=== PATIENT | female | born 1985 | race African-American/Black ===

== ENCOUNTER → 2016-10-18 | Outpatient (CLI) | payer BC | LOC: OD 09:10 | PROVIDERS: ATTEND Nurse Practitioner Primary Care | DX: Z31.83 Encounter for assisted reproductive fertility procedure cycle (principal) | CPT/HCPCS: 36415; 84702 ==

== ENCOUNTER → 2016-11-15 | Outpatient (CLI) | payer BC ==
[2016-11-26 15:39] LABS: CHROM GTGBAND RESOLUTION ACHVD 500 (.); CHROMOSOME CELLS ANALYZED 20 (.); CHROMOSOME CELLS COUNTED 20 (.); CHROMOSOME CELLS KARYOTYPED 2 (.)
[2016-11-27 10:52] LABS: CHROMOSOME BLD DIRECTOR REVIEW Comment: (.); CHROMOSOME CYTOGENETIC RESULT Comment: (.); CHROMOSOME INTERPRETATION Comment: (.); CHROMOSOME SPECIMEN TYPE Comment: (.)
== END ==
LOC: OD 12:31
PROVIDERS: ATTEND Obstetrics & Gynecology Reproductive Endocrinology
DX: N96 Recurrent pregnancy loss (principal)
CPT/HCPCS: 36415; 88230; 88262

== ENCOUNTER 2016-12-19 03:21 | Emergency (ER) | payer SELFPAY ==
[2016-12-19 03:46] VITALS: BP 121/72
[2016-12-19] MEDS ORDERED: KETOROLAC TROMETHAMINE 60 MG/2 ML SDV IM ONE (04:20)
--- NOTE | 2016-12-19 04:26 | ER Document Report ---
ED GI/ - General Chief Complaint: Foreign Body in Vagina Stated Complaint: FOREIGN OBJECT IN VAGINAL AREA Time Seen by Provider: 12/19/16 04:08 Mode of Arrival: Ambulatory Information source: Patient Notes: 31-year-old female presents to ED for a tampon in the vagina. She states she had sexual intercourse with a tampon in. End of the tampon was now stuck in the vagina. She states her and her tried to get it out, not able to. She states she could not see the string. TRAVEL OUTSIDE OF THE [place] IN LAST 30 DAYS: No - HPI Patient complains to provider of: Pelvic pain, Vaginal pain, Other - Tampon stuck in the vagina Onset: This evening Timing/Duration: Persistent Quality of pain: Cramping, Throbbing Severity at maximum: Severe Severity in ED: Severe Pain Level: 5 Location: Pelvis Vaginal bleeding (Compared to normal period): None Associated symptoms: Other - Pelvic pain due to the tampon being stuck in the vagina Exacerbated by: Denies Relieved by: Denies Similar symptoms previously: No Recently seen / treated by doctor: No - Related Data Allergies/Adverse Reactions: No Known Allergies Allergy (Verified 12/19/16 04:24) Home Medications: Current Home Medications No Home Medications 12/19/16 [History] Past Medical History - General Information source: Patient - Social History Smoking Status: Never Smoker Cigarette use (# per day): No Chew tobacco use (# tins/day): No Smoking Education Provided: No Frequency of alcohol use: Social Drug Abuse: None Occupation: [employer] Lives with: Family Family History: Hypertension, Thyroid Disfunction. denies: Arthritis, CAD, COPD , CVA, DM, Hyperlipidemia, Malignancy Patient has suicidal ideation: No Patient has homicidal ideation: No - Past Medical History Cardiac Medical History: Reports: None Pulmonary Medical History: Reports: None EENT Medical History: Reports: None Neurological Medical History: Reports: None Endocrine Medical History: Reports: None Renal/ Medical History: Reports: Hx Ovarian Cysts - PCOS, Other - Patient states she has had 2 miscarriages one stillborn and one live who has since Malignancy Medical History: Reports: None GI Medical History: Reports: None Musculoskeltal Medical History: Reports Hx Musculoskeletal Trauma - rt shoulder dislocation Skin Medical History: Reports None Psychiatric Medical History: Reports: None Traumatic Medical History: Reports: None Infectious Medical History: Reports: None Past Surgical History: Reports: Hx Dilation and Curettage - D&C 2 for miscarriages, Hx Orthopedic Surgery - right shoulder - Immunizations Immunizations up to date: Yes Hx Diphtheria, Pertussis, Tetanus Vaccination: Yes Review of Systems - Review of Systems Constitutional: No symptoms reported EENT: No symptoms reported Cardiovascular: No symptoms reported Respiratory: No symptoms reported Gastrointestinal: No symptoms reported Genitourinary: No symptoms reported Female Genitourinary: Other - Pelvic pain due to a tampon stuck in the vagina Musculoskeletal: No symptoms reported Skin: No symptoms reported Hematologic/Lymphatic: No symptoms reported Neurological/Psychological: No symptoms reported -: Yes All other systems reviewed and negative Physical Exam - Vital signs Vitals: Temp Pulse Resp BP Pulse Ox 98.1 F 70 20 121/72 98 12/19/16 03:29 12/19/16 03:29 12/19/16 03:29 12/19/16 03:12/19/16 03:29 Interpretation: Normal - General General appearance: Appears well, Alert - HEENT Head: Normocephalic, Atraumatic Eyes: Normal Pupils: PERRL - Respiratory Respiratory status: No respiratory distress Chest status: Nontender Breath sounds: Normal Chest palpation: Normal - Cardiovascular Rhythm: Regular Heart sounds: Normal auscultation Murmur: No - Abdominal Inspection: Normal Distension: No distension Bowel sounds: Normal Tenderness: Nontender Organomegaly: No organomegaly - Genitourinary External exam: Normal Speculum exam: Normal Vaginal bleeding: None Bimanuel exam: Normal Notes: Tampons duct and vagina to the right of the cervix with the string on the interior. Patient states she had sexual intercourse with a tampon in. She states she and her could not remove the tampon and the pain increased so she came to the hospital to get the tampon removed. - Back Back: Normal, Nontender - Extremities General upper extremity: Normal inspection, Nontender, Normal color, Normal ROM , Normal temperature General lower extremity: Normal inspection, Nontender, Normal color, Normal ROM , Normal temperature, Normal weight bearing. No: Val's sign - Neurological Neuro grossly intact: Yes Cognition: Normal Orientation: AAOx4 [place] Coma Scale Eye Opening: Spontaneous [place] Coma Scale Verbal: Oriented Ingrid Coma Scale Motor: Obeys Commands [place] Coma Scale Total: 15 Speech: Normal Motor strength normal: LUE, RUE, LLE, RLE Sensory: Normal - Psychological Associated symptoms: Normal affect, Normal mood - Skin Skin Temperature: Warm Skin Moisture: Dry Skin Color: Normal Course - Re-evaluation Re-evalutation: 12/19/16 04:26 Tampon removed the vagina forceps with no difficulty. Patient states she is still having some cramping will treat her with Toradol and discharge her home to follow-up with her primary doctor. - Vital Signs Vital signs: Temp Pulse Resp BP Pulse Ox 98.1 F 70 20 121/72 98 12/19/16 03:29 12/19/16 03:29 12/19/16 03:29 12/19/16 03:29 12/19/16 03:29 Discharge - Discharge Clinical Impression: Tampon stuck in the vagina Condition: Stable Disposition: HOME, SELF-CARE Instructions: Family Physicians / Practices Additional Instructions: You had a tampon stuck in your vagina. This was removed with forceps. You were then treated with Toradol. Toradol Injection You have been given an injection of ketorolac tromethamine (Toradol). This is an excellent, safe drug for pain control. It also has potent antiinflammatory action. You should have significant pain relief within about one hour. Toradol is not addicting and is non-sedating. It does not interfere with driving or work. Call or return if you develop itching, hives, shortness of breath, or rash. Follow up promptly with the ED or with your primary doctor if you develop any fevers chills or any other signs or symptoms of an infection. FOLLOW-UP CARE: If you have been referred to a physician for follow-up care, call the physician s office for an appointment as you were instructed or within the next two days. If you experience worsening or a significant change in your symptoms, notify the physician immediately or return to the Emergency Department at any time for re-evaluation. Forms: Return to Work
== END 2016-12-19 04:42 | disposition home or self-care (01) ==
LOC: ER 03:21
DX: T19.2XXA Foreign body in vulva and vagina, initial encounter (principal); R10.2 Pelvic and perineal pain; X58.XXXA Exposure to other specified factors, initial encounter; Y93.89 Activity, other specified
CPT/HCPCS: 99283; 96372; J1885

== ENCOUNTER → 2017-02-01 | Outpatient (CLI) | payer OTHER | LOC: OD 10:05 | PROVIDERS: ATTEND Nurse Practitioner Primary Care | DX: N97.9 Female infertility, unspecified (principal) | CPT/HCPCS: 36415; 82670 ==

== ENCOUNTER 2017-02-06 13:50 | Emergency (ER) | payer OTHER ==
--- NOTE | 2017-02-06 14:24 | ER Document Report ---
ED Foreign Body - General Chief Complaint: Foreign Body in Vagina Stated Complaint: VAGINAL PROBLEMS Time Seen by Provider: 02/06/17 14:03 Mode of Arrival: Ambulatory Information source: Patient TRAVEL OUTSIDE OF THE [place] IN LAST 30 DAYS: No - HPI Patient complains to provider of: Possible tampon in vagina Onset: Yesterday Associated symptoms: Vaginal bleeding. denies: Recent injury, Fever, Chills, Sweaty, Nausea, Vomiting blood, Lightheadedness, Fainting, Headache, Bruising, Blurred vision, Double vision, Rectal bleeding, Nose bleeding Exacerbated by: Denies Relieved by: Denies Notes: Patient arrives with complaints of concern for tampon in her vagina. Patient is currently on her menses and was wearing a tampon Tuesday evening. She states that she was intoxicated when she got home and had intercourse with her but does not remember taking her tampon out. She is concerned that there is still a tampon in and wanted to have this evaluated. She denies any pain, fever , nausea vomiting diarrhea, dysuria. She denies any vaginal discharge. She is currently on her menses and this is been normal. She denies any other complaints at this time. - Related Data Allergies/Adverse Reactions: Sulfa (Sulfonamide Antibiotics) Allergy (Verified 02/06/17 13:59) Past Medical History - Social History Smoking Status: Unknown if Ever Smoked Family History: Hypertension, Thyroid Disfunction. denies: Arthritis, CAD, COPD , CVA, DM, Hyperlipidemia, Malignancy Patient has suicidal ideation: No Patient has homicidal ideation: No Renal/ Medical History: Reports: Hx Ovarian Cysts - PCOS. Denies: Hx Peritoneal Dialysis Musculoskeltal Medical History: Reports Hx Musculoskeletal Trauma - rt shoulder dislocation Past Surgical History: Reports: Hx Dilation and Curettage - D&C 2 for miscarriages, Hx Gynecologic Surgery - D&Cx3, Hx Orthopedic Surgery - right shoulder - Immunizations Immunizations up to date: Yes Hx Diphtheria, Pertussis, Tetanus Vaccination: Yes Review of Systems - Review of Systems -: Yes All other systems reviewed and negative Physical Exam - Vital signs Vitals: Temp Pulse Resp BP Pulse Ox 98.5 F 114 H 16 124/85 93 02/06/17 13:56 02/06/17 13:56 02/06/17 13:56 02/06/17 13:56 02/06/17 13:56 - Notes Notes: GENERAL: alert, cooperative, nontoxic, no distress. HEAD: normocephalic, atraumatic EYES: conjunctiva pink without discharge, no external redness or swelling. EARS: no external swelling, no external redness NOSE: atraumatic, no external swelling MOUTH/THROAT: mucous membranes moist and pink, posterior pharynx without erythema, swelling, exudate. No trismus or drooling. NECK: soft, supple, full range of motion, no meningismus. CHEST: no distress, lungs clear and equal throughout. No wheezing, rales, rhonchi. CARDIAC: regular rate and rhythm, no murmur, normal capillary refill, normal pulses. No peripheral edema noted. ABDOMEN: Soft, nontender. BACK: full range of motion, no CVA tenderness. EXTREMITIES: full range of motion of all extremities. No redness, no swelling. NEURO: alert and oriented x 3, no focal deficits, full range of motion of all extremities. PYSCH: appropriate mood, affect. Patient is cooperative. SKIN: pink, warm, dry, no rash. 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 No external lesions. Speculum was inserted, cervix was visualized. There was blood within the vaginal vault consistent with current menses. There was no foreign body or tampon visualized on exam. Bimanual exam was unremarkable. No adnexal tenderness or masses. Course - Re-evaluation Re-evalutation: 02/06/17 14:30 Patient is nontoxic appearing with stable vitals. The patient arrives with concern that she still has a tampon in her vagina. States that she went out Tuesday evening with her and was intoxicated when they got home. They had intercourse and she does not remember removing her tampon. She is concerned that it still in there. She denies any complaints at all. Pelvic exam shows no tampon present. No signs of infection. Patient will be discharged home with instructions to follow-up for pain, fever, vomiting, any further concerns. The patient is noted to have elevated blood pressure during today's emergency department visit. The patient was informed of this finding. The patient was instructed that this may be related to pre-hypertension and requires further evaluation with a primary care provider. The patient has no hypertensive symptoms at this time. - Vital Signs Vital signs: Temp Pulse Resp BP Pulse Ox 98.5 F 114 H 16 124/85 93 02/06/17 13:56 02/06/17 13:56 02/06/17 13:56 02/06/17 13:56 02/06/17 13:56 Discharge - Discharge Clinical Impression: Worried well Condition: Stable Disposition: HOME, SELF-CARE Instructions: Vaginal Bleeding ([facility]) Additional Instructions: Follow-up as needed for pain, fever, discharge, nausea, vomiting, any further concerns. Your blood pressure was elevated during today's visit. Have this rechecked with your doctor. Forms: Elevated Blood Pressure
[2017-02-06 14:35] VITALS: BP 116/71
== END 2017-02-06 14:32 | disposition home or self-care (01) ==
LOC: ER 13:50
DX: Z71.1 Person with feared health complaint in whom no diagnosis is made (principal); Z88.2 Allergy status to sulfonamides
CPT/HCPCS: 99283

== ENCOUNTER 2017-09-13 11:39 | Emergency (ER) | payer OTHER ==
--- NOTE | 2017-09-13 11:56 | ER Document Report ---
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 Onset 331 of nausea and frequent diarrhea. She vomited once last night. She has had a headache for 2 days. She reports she has been drinking lots of fluids, but is concerned about being dehydrated due to the amount of diarrhea. I have greeted and performed a rapid initial assessment of this patient. A comprehensive ED assessment and evaluation of the patient, analysis of test results and completion of the medical decision making process will be conducted by additional ED providers. TRAVEL OUTSIDE OF THE [place] IN LAST 30 DAYS: No - Related Data Allergies/Adverse Reactions: No Known Allergies Allergy (Verified 09/13/17 11:41) Past Medical History Renal/ Medical History: Reports: Hx Ovarian Cysts - PCOS. Denies: Hx Peritoneal Dialysis Musculoskeltal Medical History: Reports Hx Musculoskeletal Trauma - rt shoulder dislocation Past Surgical History: Reports: Hx Dilation and Curettage - D&C 2 for miscarriages, Hx Gynecologic Surgery - D&Cx3, Hx Orthopedic Surgery - right shoulder - Immunizations Immunizations up to date: Yes Hx Diphtheria, Pertussis, Tetanus Vaccination: Yes Physical Exam - Vital signs Vitals: Temp Pulse Resp BP Pulse Ox 99.1 F 86 16 126/83 H 98 09/13/17 11:45 09/13/17 11:45 09/13/17 11:45 09/13/17 11:45 09/13/17 11:45 Course - Vital Signs Vital signs: Temp Pulse Resp BP Pulse Ox 99.1 F 86 16 126/83 H 98 09/13/17 11:45 09/13/17 11:45 09/13/17 11:45 09/13/17 11:45 09/13/17 11:45
[2017-09-13] MEDS ORDERED: NORMAL SALINE 1000 ML 1,000 ML IV ONE (12:18)
[2017-09-13] MEDS ORDERED: METOCLOPRAMIDE HCL INJ/PF 10 MG/2 ML SDV IV ONE (12:24)
[2017-09-13 12:28] LABS: ABSOLUTE EOSINOPHILS # (AUTO) 0.4 10^3/uL (0.0-0.6); ABSOLUTE LYMPHOCYTES (AUTO) 2.3 10^3/uL (0.5-4.7); ABSOLUTE MONOCYTES (AUTO) 0.4 10^3/uL (0.1-1.4); ABSOLUTE NEUT (AUTO) 2.3 10^3/uL (1.7-8.2); BASOPHILS % (AUTO) 0.5 % (0-2); EOSINOPHILS % (AUTO) 7.8 % (0-6); HEMATOCRIT 42.8 % (36.0-47.0); LYMPHOCYTES % (AUTO) 41.8 % (13-45); MEAN CORPUSCULAR HEMOGLOBIN 32.6 pg (27.0-33.4); MEAN CORPUSCULAR HGB CONC 35.1 g/dL (32.0-36.0); MEAN CORPUSCULAR VOLUME 93 fl (80-97); MONOCYTES % (AUTO) 8.1 % (3-13); PLATELET COUNT 290 10^3/uL (150-450); RED CELL DISTRIBUTION WIDTH 13.2 % (11.5-14.0); SEGMENTED NEUTROPHILS % (AUTO) 41.8 % (42-78); TOTAL CELLS COUNTED % (AUTO) 100 %; WHITE BLOOD COUNT 5.5 10^3/uL (4.0-10.5)
[2017-09-13 12:33] LABS: APPEARANCE,URINE SLIGHTLY-CLOUDY; BILIRUBIN,URINE NEGATIVE (NEGATIVE); COLOR,URINE DARK YELLOW; GLUCOSE, URINE NEGATIVE (NEGATIVE); KETONES,URINE 20 mg/dL (NEGATIVE); LEUKOCYTE ESTERASE,URINE NEGATIVE (NEGATIVE); NITRITE,URINE NEGATIVE (NEGATIVE); PROTEIN,URINE 30 mg/dL (NEGATIVE); URINE SPECIFIC GRAVITY 1.028; UROBILINOGEN,URINE NEGATIVE mg/dL (<2.0)
[2017-09-13 12:50] LABS: ALANINE AMINOTRANSFERASE 22 U/L (9-52); ALBUMIN 4.1 g/dL (3.5-5.0); ALKALINE PHOSPHATASE 53 U/L (38-126); ANION GAP 13 (5-19); ASPARTATE AMINO TRANSFERASE 21 U/L (14-36); BILIRUBIN,DIRECT 0.3 mg/dL (0.0-0.4); BILIRUBIN,TOTAL 0.4 mg/dL (0.2-1.3); BLOOD UREA NITROGEN 10 mg/dL (7-20); CALCIUM 9.3 mg/dL (8.4-10.2); CARBON DIOXIDE 18 mmol/L (22-30); CHLORIDE 109 mmol/L (98-107); GLUCOSE 95 mg/dL (75-110); POTASSIUM 4.4 mmol/L (3.6-5.0); SODIUM 139.8 mmol/L (137-145); TOTAL PROTEIN 7.4 g/dL (6.3-8.2)
--- NOTE | 2017-09-13 13:55 | ER Document Report ---
ED General - General Chief Complaint: Vomiting/Diarrhea Stated Complaint: NAUSEA AND VOMITING Time Seen by Provider: 09/13/17 11:50 TRAVEL OUTSIDE OF THE [place] IN LAST 30 DAYS: No - HPI Patient complains to provider of: Nausea vomiting diarrhea Notes: Patient coming in for nausea vomiting diarrhea ongoing for the last 48 hours. Patient states her significant other at bedside and had symptoms only lasted for 24 hours. Patient states recently had 2 embryos implanted intra-uterus that she is trying get . Patient is also unaware of her status at this time. Denies any fevers or chills. Patient resting comfortably no signs of toxemia upon my evaluation. - Related Data Allergies/Adverse Reactions: No Known Allergies Allergy (Verified 09/13/17 11:41) Past Medical History - Social History Smoking Status: Never Smoker Chew tobacco use (# tins/day): No Frequency of alcohol use: None Drug Abuse: None Family History: Hypertension, Thyroid Disfunction. denies: Arthritis, CAD, COPD , CVA, DM, Hyperlipidemia, Malignancy Patient has suicidal ideation: No Patient has homicidal ideation: No Renal/ Medical History: Reports: Hx Ovarian Cysts - PCOS. Denies: Hx Peritoneal Dialysis Musculoskeltal Medical History: Reports Hx Musculoskeletal Trauma - rt shoulder dislocation Past Surgical History: Reports: Hx Dilation and Curettage - D&C 2 for miscarriages, Hx Gynecologic Surgery - D&Cx3, Hx Orthopedic Surgery - right shoulder - Immunizations Immunizations up to date: Yes Hx Diphtheria, Pertussis, Tetanus Vaccination: Yes Review of Systems - Review of Systems Constitutional: No symptoms reported EENT: No symptoms reported Cardiovascular: No symptoms reported Respiratory: No symptoms reported Gastrointestinal: Diarrhea, Nausea, Vomiting Genitourinary: No symptoms reported Female Genitourinary: No symptoms reported Musculoskeletal: No symptoms reported Skin: No symptoms reported Hematologic/Lymphatic: No symptoms reported Neurological/Psychological: No symptoms reported Physical Exam - Vital signs Vitals: Temp Pulse Resp BP Pulse Ox 99.1 F 86 16 126/83 H 98 09/13/17 11:45 09/13/17 11:45 09/13/17 11:45 09/13/17 11:45 09/13/17 11:45 Interpretation: Normal - General General appearance: Appears well, Alert - HEENT Head: Normocephalic, Atraumatic Eyes: Normal Pupils: PERRL - Respiratory Respiratory status: No respiratory distress Chest status: Nontender Breath sounds: Normal Chest palpation: Normal - Cardiovascular Rhythm: Regular Heart sounds: Normal auscultation Murmur: No - Abdominal Inspection: Normal Distension: No distension Bowel sounds: Normal Tenderness: Nontender Organomegaly: No organomegaly - Back Back: Normal, Nontender - Extremities General upper extremity: Normal inspection, Nontender, Normal color, Normal ROM , Normal temperature General lower extremity: Normal inspection, Nontender, Normal color, Normal ROM , Normal temperature, Normal weight bearing. No: Val's sign - Neurological Neuro grossly intact: Yes Cognition: Normal Orientation: AAOx4 [place] Coma Scale Eye Opening: Spontaneous Ingrid Coma Scale Verbal: Oriented Ingrid Coma Scale Motor: Obeys Commands [place] Coma Scale Total: 15 Speech: Normal Motor strength normal: LUE, RUE, LLE, RLE Sensory: Normal - Psychological Associated symptoms: Normal affect, Normal mood - Skin Skin Temperature: Warm Skin Moisture: Dry Skin Color: Normal Course - Re-evaluation Re-evalutation: 09/13/17 18:43 test returned positive. Laboratory studies consistent with dehydration and significant amount diarrhea. Patient feeling better after Reglan and IV fluids. Patient is decided that her test is positive at this time. Recommended close follow-up with her [employer]. Will give patient Reglan. Patient states she is already on vitamins. No vaginal bleeding or vaginal discharge no abdominal pain resting currently upon my reevaluation good candidate for outpatient treatment. The patient presents with nausea vomiting diarrhea without signs of peritonitis or other life- threatening or serious etiology. The patient appears stable for discharge and has been instructed to return immediately if the symptoms worsen in any way, or in 8-12hr if not improved for re-evaluation. The patient has been instructed to return if the symptoms worsen or change in any way. - Vital Signs Vital signs: Temp Pulse Resp BP Pulse Ox 98.5 F 79 16 116/79 100 09/13/17 14:08 09/13/17 14:08 09/13/17 14:08 09/13/17 14:08 09/13/17 14:08 - Laboratory Result Diagrams: 09/13/17 12:05 09/13/17 12:05 Laboratory results interpreted by me: 09/13/17 09/13/17 09/13/17 11:56 12:05 12:05 Seg Neutrophils % 41.8 L Eosinophils % 7.8 H Chloride 109 H Carbon Dioxide 18 L Serum HCG, Qual Beta HCG, Quant Urine Protein 30 H Urine Ketones 20 H Urine Blood MODERATE H 18 09/13/17 12:05 12:05 Seg Neutrophils % Eosinophils % Chloride Carbon Dioxide Serum HCG, Qual POSITIVE H Beta HCG, Quant 11.40 H Urine Protein Urine Ketones Urine Blood Discharge - Discharge Clinical Impression: Nausea vomiting and diarrhea Qualifiers: Weeks of gestation: less than 8 weeks Qualified Code(s): Z3A.01 - Less than 8 weeks gestation of Condition: Good Disposition: HOME, SELF-CARE Instructions: Gastroenteritis (adult) ([facility]), ([facility]), Reglan ([facility]) Additional Instructions: Your evaluation show some slight dehydration and positive test. More likely have a viral gastroenteritis causing her nausea vomiting and diarrhea and some your vomiting may be exacerbated by the fact that does look you are at this time. Please follow-up with your primary care physician recommend taking Reglan at this time for your nausea. May also try over [id number] medications as prescribed below. We did not treat diarrhea this time. Return to ER if symptoms worsen. For nausea and vomiting during I recomment: Start with 10-12.5 mg of pyridoxine (vitamin B6) three times a day for 2 days. If not fully effective, Increase to 12.5 mg of pyridoxine four times a day for 2 days. If not fully effective, Increase to 25 mg of pyridoxine three times a day for 2 days. If not fully effective, Continue 25 mg pyridoxine 3 times a day, and add 12.5 mg of doxylamine before bedtime each day for 2 days. If not fully effective, Continue 25 mg pyridoxine 3 times a day, and take 12.5 mg of doxylamine twice a day. If not fully effective, Continue 25 mg pyridoxine 3 times a day, and take 12.5 mg of doxylamine three times a day. If not fully effective, Continue 25 mg pyridoxine 3 times a day, and 12.5 mg of doxylamine 3 times a day , while adding Emetrol, one to two tablespoons (15-30 cc) taken once or twice a day as needed. (Emetrol is an [id number] mixture of sugar syrups and phosphoric acid [phosphorylated carbohydrate solution]) that acts by soothing the actual wall of the gastrointestinal tract). If not fully effective, Consult with your doctor. Prescriptions: Metoclopramide HCl [Reglan] 5 mg PO Q6 #30 tablet Referrals: BHARGAV JACOBSON, RECONDITIONER [Primary Care Provider] - Follow up as needed
[2017-09-13 14:14] VITALS: BP 116/79
== END 2017-09-13 14:14 | disposition home or self-care (01) ==
LOC: ER 11:39
DX: O09.811 Supervision of pregnancy resulting from assisted reproductive technology, first trimester (principal); O26.891 Other specified pregnancy related conditions, first trimester; R11.2 Nausea with vomiting, unspecified; R19.7 Diarrhea, unspecified; Z3A.01 Less than 8 weeks gestation of pregnancy
CPT/HCPCS: 99284; 96361; 96374; 36415; 84702; 84703; 85025; 80053; 81001; J2765; J7030

== ENCOUNTER → 2017-09-19 | Outpatient (CLI) | payer OTHER | LOC: OD 08:42 | PROVIDERS: ATTEND Nurse Practitioner Primary Care | DX: Z32.00 Encounter for pregnancy test, result unknown (principal) | CPT/HCPCS: 36415; 84144; 84702 ==

== ENCOUNTER → 2017-09-21 | Outpatient (CLI) | payer OTHER | LOC: OD 08:32 | PROVIDERS: ATTEND Obstetrics & Gynecology Reproductive Endocrinology | DX: Z32.01 Encounter for pregnancy test, result positive (principal) | CPT/HCPCS: 36415; 84144; 84702 ==

== ENCOUNTER → 2017-09-28 | Outpatient (CLI) | payer OTHER | LOC: OD 13:13 | PROVIDERS: ATTEND Nurse Practitioner Primary Care | DX: O20.0 Threatened abortion (principal); Z3A.00 Weeks of gestation of pregnancy not specified | CPT/HCPCS: 36415; 84144; 84702 ==

== ENCOUNTER 2017-09-30 20:30 | Emergency (ER) | payer OTHER ==
--- NOTE | 2017-09-30 21:50 | ER Document Report ---
ED General - General Mode of Arrival: Ambulatory Information source: Patient TRAVEL OUTSIDE OF THE [place] IN LAST 30 DAYS: No <SHAN DICKINSON - Last Filed: 09/30/17 21:53> <SONJA PEREZ - Last Filed: 10/01/17 00:52> - General Chief Complaint: Vaginal Bleeding Stated Complaint: VAGINAL BLEEDING Notes: 32 y.o female with a PMHx of miscarriages presents to the ED with vaginal bleeding and abd cramping for the past 2 days. Pt had an embryo implantation on September 08 and two of them became viable, making her 6 weeks along. She started to miscarriage on Tuesday, two days ago. She states that she saw her doctor and was told that she was miscarriage one of them and when she went back yesterday there was only one heart beat. Pt states that today she was lying in bed and felt a clot pass and filled a pad with blood and is not sure if the other embryo is still viable. Pt PSHx of eye surgery when she was a child and RT rotator cuff repair. ( SHAN DICKINSON) - Related Data Allergies/Adverse Reactions: No Known Allergies Allergy (Verified 09/13/17 11:41) Past Medical History - General Information source: Patient - Social History Smoking Status: Never Smoker Chew tobacco use (# tins/day): No Frequency of alcohol use: None Drug Abuse: None Family History: Hypertension, Thyroid Disfunction. denies: Arthritis, CAD, COPD , CVA, DM, Hyperlipidemia, Malignancy Patient has suicidal ideation: No Patient has homicidal ideation: No Renal/ Medical History: Reports: Hx Ovarian Cysts - PCOS. Denies: Hx Peritoneal Dialysis Musculoskeltal Medical History: Reports Hx Musculoskeletal Trauma - rt shoulder dislocation Past Surgical History: Reports: Hx Dilation and Curettage - D&C 2 for miscarriages, Hx Gynecologic Surgery - D&Cx3, Hx Orthopedic Surgery - right shoulder - Immunizations Immunizations up to date: Yes Hx Diphtheria, Pertussis, Tetanus Vaccination: Yes <SHAN DICKINSON - Last Filed: 09/30/17 21:53> Review of Systems - Review of Systems Constitutional: No symptoms reported EENT: No symptoms reported Cardiovascular: No symptoms reported Respiratory: No symptoms reported Gastrointestinal: Other - Abd cramping Female Genitourinary: See HPI, Vaginal bleeding Musculoskeletal: No symptoms reported Skin: No symptoms reported Hematologic/Lymphatic: No symptoms reported Neurological/Psychological: No symptoms reported <SHAN DICKINSON - Last Filed: 09/30/17 21:53> Physical Exam <SHAN DICKINSON - Last Filed: 09/30/17 21:53> <SONJA PEREZ - Last Filed: 10/01/17 00:52> - Vital signs Vitals: Temp Pulse Resp BP Pulse Ox 98.0 F 80 16 111/66 99 09/30/17 21:19 09/30/17 21:19 09/30/17 21:19 09/30/17 21:19 09/30/17 21:19 - Notes Notes: General: Alert, appears well. HEENT: Normocephalic. Atraumatic. PERRL. Extraocular movements intact. Oropharynx clear. Neck: Supple. Non-tender. Respiratory: No respiratory distress. Clear and equal breath sounds bilaterally. Cardiovascular: Regular rate and rhythm. Abdominal: Normal Inspection. Non-tender. No distension. Normal Bowel Sounds. Back: Non-tender. No deformity or step off. Extremities: Moves all four extremities. Upper extremities: Normal inspection. Normal ROM. Lower extremities: Normal inspection. No edema. Normal ROM. Neurological: Normal cognition. AAOx4. Normal speech. Psychological: Normal affect. Normal Mood. Skin: Warm. Dry. Normal color. (SHAN DIKCINSON) Course <TEENASHAN - Last Filed: 09/30/17 21:53> - Laboratory Result Diagrams: 09/30/17 23:02 - Diagnostic Test Radiology reviewed: Reports reviewed - Ultrasound shows a single intrauterine estimated 5 week 6 day age with heart rate of 104. There is 2 cm hypo -dense area adjacent to the gas station sac which is felt to most likely be subchorionic bleed. <SONJA PEREZ - Last Filed: 10/01/17 00:52> - Re-evaluation Re-evalutation: 10/01/17 00:07 I was just informed by the nurse, that the lab reported the carbon monoxide level was never run because they allow the tube to sit unattended for quite some time and become warm and is not usable at this time. They plan to send someone down to try to obtain another specimen. (ANA,SONJA) - Vital Signs Vital signs: Temp Pulse Resp BP Pulse Ox 98.8 F 71 16 115/68 98 10/01/17 00:30 10/01/17 00:30 10/01/17 00:30 10/01/17 00:30 10/01/17 00:30 - Laboratory Laboratory results interpreted by me: 09/30/17 09/30/17 23:02 23:02 Eosinophils % 14.3 H Absolute Eosinophils 1.2 H Beta HCG, Quant 22383.00 H Discharge <SHAN DICKINSON - Last Filed: 09/30/17 21:53> <SONJA PEREZ - Last Filed: 10/01/17 00:52> - Discharge Clinical Impression: Threatened miscarriage in early Condition: Stable Disposition: HOME, SELF-CARE Additional Instructions: Continue your bedrest. Follow-up with your [facility] doctor Tuesday for recheck. RETURN TO THE EMERGENCY ROOM IF ANY NEW OR WORSENING SYMPTOMS. Referrals: BHARGAV JACOBSON NP [Primary Care Provider] - 10/03/17 Scribe Documentation - Scribe Written by Parul:: Parul Burroughs 09/30/17 2143 acting as scribe for :: Ana <SHAN DICKINSON - Last Filed: 09/30/17 21:53>
[2017-09-30 23:33] LABS: ABSOLUTE BASOPHILS # (AUTO) 0.1 10^3/uL (0.0-0.2); ABSOLUTE EOSINOPHILS # (AUTO) 1.2 10^3/uL (0.0-0.6); ABSOLUTE LYMPHOCYTES (AUTO) 2.6 10^3/uL (0.5-4.7); ABSOLUTE MONOCYTES (AUTO) 0.6 10^3/uL (0.1-1.4); ABSOLUTE NEUT (AUTO) 3.8 10^3/uL (1.7-8.2); BASOPHILS % (AUTO) 0.9 % (0-2); EOSINOPHILS % (AUTO) 14.3 % (0-6); HEMATOCRIT 41.5 % (36.0-47.0); HEMOGLOBIN 14.6 g/dL (12.0-15.5); LYMPHOCYTES % (AUTO) 31.9 % (13-45); MEAN CORPUSCULAR HEMOGLOBIN 32.7 pg (27.0-33.4); MEAN CORPUSCULAR HGB CONC 35.1 g/dL (32.0-36.0); MEAN CORPUSCULAR VOLUME 93 fl (80-97); MONOCYTES % (AUTO) 7.2 % (3-13); PLATELET COUNT 276 10^3/uL (150-450); RED BLOOD COUNT 4.46 10^6/uL (3.72-5.28); RED CELL DISTRIBUTION WIDTH 12.8 % (11.5-14.0); SEGMENTED NEUTROPHILS % (AUTO) 45.7 % (42-78); TOTAL CELLS COUNTED % (AUTO) 100 %; WHITE BLOOD COUNT 8.3 10^3/uL (4.0-10.5)
[2017-10-01 00:32] VITALS: BP 115/68
--- NOTE | 2017-10-01 00:44 | RADIOLOGY REPORT (SQ) ---
EXAM DESCRIPTION: U/S OB TRANSVAGINAL W/O DOP CLINICAL HISTORY: 32 years Female, Twins following embryo implantation, cramping bleed IVF performed 09/08/2017. COMPARISON: None. TECHNIQUE: First trimester surgical ultrasound obtained using transvaginal imaging. FINDINGS: The uterus measures 9.4 x 6.1 x 5.5 cm in length. No myometrial abnormalities. Cervical length of 3.1 cm. The cervix is closed. The endometrial canal there is a gestational sac with a pole identified. [place]-rump length of 0.24 cm compatible with an estimated gestational age of 5 weeks, 6 days. heart rate of 104 bpm. Appearing yolk sac. Adjacent to the gestational sac there is a hypodensity measuring 2.0 x 1.3 cm. Small amount of free pelvic fluid. The right ovary measures 3.9 x 2.3 x 1.7 cm. The left ovary measures 2.5 x 4.0 x 2.1 cm. IMPRESSION: 1. Single live intrauterine with estimated gestational age of 5 weeks, 6 days. heart rate of 104 beats for minute. 2. Hypodensity in the endometrium measuring 2.0 cm adjacent to the gestational sac. This may represent subchorionic hemorrhage or side of second embryo insertion. Continued close clinical, laboratory, and sonographic follow-up recommended.
== END 2017-10-01 01:23 | disposition home or self-care (01) ==
LOC: ER 20:30
DX: O20.0 Threatened abortion (principal); Z3A.01 Less than 8 weeks gestation of pregnancy
CPT/HCPCS: 36415; 76817; 84702; 85025; 99284

== ENCOUNTER → 2017-10-03 | Outpatient (CLI) | payer OTHER | LOC: OD 11:02 | PROVIDERS: ATTEND Nurse Practitioner Primary Care | DX: O20.0 Threatened abortion (principal) | CPT/HCPCS: 36415; 84144; 84702 ==

== ENCOUNTER → 2017-10-06 | Outpatient (CLI) | payer OTHER | LOC: OD 09:34 | PROVIDERS: ATTEND Nurse Practitioner Primary Care | DX: O20.0 Threatened abortion (principal) | CPT/HCPCS: 36415; 84144; 84702 ==

== ENCOUNTER → 2017-10-10 | Outpatient (CLI) | payer OTHER | LOC: OD 07:21 | PROVIDERS: ATTEND Nurse Practitioner Primary Care | DX: O20.0 Threatened abortion (principal) | CPT/HCPCS: 36415; 84144; 84702 ==

== ENCOUNTER → 2017-10-13 | Outpatient (CLI) | payer OTHER | LOC: OD 08:55 | PROVIDERS: ATTEND Nurse Practitioner Primary Care | DX: O20.0 Threatened abortion (principal) | CPT/HCPCS: 36415; 84144; 84702 ==

== ENCOUNTER → 2017-10-17 | Outpatient (CLI) | payer OTHER | LOC: OD 10:09 | PROVIDERS: ATTEND Nurse Practitioner Primary Care | DX: O20.0 Threatened abortion (principal); Z3A.00 Weeks of gestation of pregnancy not specified | CPT/HCPCS: 36415; 84144; 84702 ==

== ENCOUNTER → 2017-10-21 | Outpatient (CLI) | payer OTHER | LOC: OD 08:23 | PROVIDERS: ATTEND Nurse Practitioner Primary Care | DX: Z31.83 Encounter for assisted reproductive fertility procedure cycle (principal); O20.0 Threatened abortion; N93.8 Other specified abnormal uterine and vaginal bleeding | CPT/HCPCS: 36415; 84144; 84702 ==

== ENCOUNTER → 2017-10-26 | Outpatient (CLI) | payer OTHER | LOC: OD 08:56 | PROVIDERS: ATTEND Nurse Practitioner Primary Care | DX: O20.0 Threatened abortion (principal) | CPT/HCPCS: 36415; 84144; 84702 ==

== ENCOUNTER 2018-04-02 20:15 | Outpatient (CLI) | payer OTHER ==
[2018-04-02 20:54] LABS: APPEARANCE,URINE SLIGHTLY-CLOUDY; BILIRUBIN,URINE NEGATIVE (NEGATIVE); COLOR,URINE YELLOW; GLUCOSE, URINE NEGATIVE (NEGATIVE); KETONES,URINE TRACE mg/dL (NEGATIVE); LEUKOCYTE ESTERASE,URINE NEGATIVE (NEGATIVE); NITRITE,URINE NEGATIVE (NEGATIVE); PROTEIN,URINE 30 mg/dL (NEGATIVE); URINE SPECIFIC GRAVITY 1.029
[2018-04-02 21:01] LABS: URINE AMPHETAMINES SCREEN NEGATIVE; URINE BARBITURATES SCREEN NEGATIVE; URINE BENZODIAZEPINES SCREEN NEGATIVE; URINE COCAINE SCREEN NEGATIVE; URINE MARIJUANA (THC) SCREEN NEGATIVE; URINE METHADONE SCREEN NEGATIVE; URINE PHENCYCLIDINE SCREEN NEGATIVE
[2018-04-02] MEDS ORDERED: SIMETHICONE 80 MG TAB.CHEW ONE (22:10)
[2018-04-02] MEDS ORDERED: SIMETHICONE 80 MG TAB.CHEW PO ONE (22:30)
--- NOTE | 2018-04-02 23:07 | Non Stress Test Report ---
Non Stress Test Datetime Report Generated by CPN: 04/02/2018 23:07 DEMOGRAPHIC Test Number: 1 EGA NST: 32.1 INDICATION Indication for Study: Ordered by Provider Indication for Study (NST) Other: LC VITAL SIGNS Temperature - NST: 97.8 Pulse - NST: 90 RESP - NST: 14 NBPSYS NST: 135 NBPDIA NST: 78 URINE RESULTS Urine Protein, NST: Positive Urine Ketones - NST: Positive Urine Glucose - NST: Negative Urine Blood - NST: Negative MONITORING Monitor Explained: Monitor Explained; Test Explained; Patient Verbalized Understanding Time on Monitor: 04/02/2018 20:36 Time off Monitor: 04/02/2018 22:44 NST Duration: 128 NST INTERVENTIONS NST Interventions: PO Hydration NST Interventions Other: AGA Physician Notified NST: Dr. Younger BABY A: [id number] BABY A Movement : Present Contraction Frequency : None FHR Baseline : 135 Accelerations : 15X15 Decelerations : None Variability : Moderate 6-25bpm NST Review: Meets Criteria for Reactive NST NST Review and Verified By : A. Misyak, RN NST Results: Reactive NST COMMENTS NST Comments: Provider on unit and reviewed tracing. Audible movement heard, RN at bedside and holding monitor due to movement. NST REPORT Report Trigger: Send Report
== END 2018-04-02 22:53 | disposition home or self-care (01) ==
LOC: LC 20:15
PROVIDERS: ATTEND Obstetrics & Gynecology
PROC: 4A1HXCZ Monitoring of Products of Conception, Cardiac Rate, External Approach (ICD-10-PCS; principal; 2018-04-02)
DX: Z34.93 Encounter for supervision of normal pregnancy, unspecified, third trimester (principal)
CPT/HCPCS: 59025; 80307; 81001

== ENCOUNTER 2018-09-20 18:19 | Emergency (ER) | payer OTHER ==
[2018-09-20 18:31] VITALS: BP 133/66
[2018-09-20 19:05] LABS: APPEARANCE,URINE SLIGHTLY-CLOUDY; BILIRUBIN,URINE NEGATIVE (NEGATIVE); COLOR,URINE YELLOW; GLUCOSE, URINE NEGATIVE (NEGATIVE); KETONES,URINE NEGATIVE (NEGATIVE); LEUKOCYTE ESTERASE,URINE LARGE (NEGATIVE); NITRITE,URINE NEGATIVE (NEGATIVE); PROTEIN,URINE NEGATIVE (NEGATIVE); URINE SPECIFIC GRAVITY 1.013; UROBILINOGEN,URINE NEGATIVE mg/dL (<2.0)
== END 2018-09-20 20:26 | disposition left against medical advice (07) ==
LOC: ER 18:19
DX: Z53.21 Procedure and treatment not carried out due to patient leaving prior to being seen by health care provider (principal)
CPT/HCPCS: 81001; 81025

== ENCOUNTER 2018-11-24 16:18 | Emergency (ER) | payer OTHER ==
--- NOTE | 2018-11-24 16:53 | ER Document Report ---
ED Medical Screen (RME) - General Chief Complaint: Headache Stated Complaint: HEAD PAIN Time Seen by Provider: 11/24/18 16:43 Primary Care Provider: AMOS BAEZ DO [Primary Care Provider] - Follow up as needed Mode of Arrival: Ambulatory Information source: Patient Notes: Patient is a 33-year-old female who presents to the ER today for headache, right-sided numbness, tingling and facial droop that started today. Patient states that she went to urgent care yesterday and was started on Augmentin for possible mastoiditis. Patient states that she did go there for pain behind her right ear. She denies any recent cold or congestion type symptoms. She denies history of stroke, Vasquez's palsy or mastoiditis in the past. She denies numbness or tingling to the right arm or leg at all or anywhere else in the body. TRAVEL OUTSIDE OF THE [place] IN LAST 30 DAYS: No - Related Data Allergies/Adverse Reactions: No Known Allergies Allergy (Verified 04/02/18 20:32) Past Medical History - General Information source: Patient - Social History Chew tobacco use (# tins/day): No Frequency of alcohol use: Occasional Drug Abuse: None Renal/ Medical History: Reports: Hx Ovarian Cysts - PCOS. Denies: Hx Peritoneal Dialysis Musculoskeltal Medical History: Reports Hx Musculoskeletal Trauma - rt shoulder dislocation Past Surgical History: Reports: Hx Dilation and Curettage - D&C 2 for miscarriages, Hx Gynecologic Surgery - D&Cx3, Hx Orthopedic Surgery - right shoulder - Immunizations Immunizations up to date: Yes Hx Diphtheria, Pertussis, Tetanus Vaccination: Yes Review of Systems - Review of Systems EENT: See HPI Neurological/Psychological: See HPI Physical Exam - Vital signs Vitals: Temp Pulse Resp BP Pulse Ox 98.1 F 65 16 116/73 100 11/24/18 16:30 11/24/18 16:30 11/24/18 16:30 11/24/18 16:30 11/24/18 16:30 - Notes Notes: PHYSICAL EXAMINATION: GENERAL: Well-appearing and in no acute distress. HEAD: Atraumatic, normocephalic. EYES: Pupils equal round and reactive to light, extraocular movements intact, sclera anicteric, conjunctiva are normal. ENT: ear canals without erythema or foreign body, TMs pearly cruz with good bony landmarks, no erythema to the right mastoid or left mastoid NEUROLOGICAL: Decreased sensation to the right side of the face entirely, right- sided mild facial droop, weakness with eyelid strength as well as right eyebrow weakness PSYCH: Normal mood, normal affect. SKIN: Warm, Dry, normal turgor, no rashes or lesions noted Course - Re-evaluation Re-evalutation: 11/24/18 16:53 Patient likely has Vasqeuz's palsy, however due to being treated currently for mastoiditis as well as new right-sided facial droop and numbness and tingling, head CT ordered - Vital Signs Vital signs: Temp Pulse Resp BP Pulse Ox 98.1 F 65 16 116/73 100 11/24/18 16:30 11/24/18 16:30 11/24/18 16:30 11/24/18 16:30 11/24/18 16:30 Doctor's Discharge - Discharge Referrals: AMOS BAEZ DO [Primary Care Provider] - Follow up as needed
[2018-11-24 17:09] LABS: ABSOLUTE BASOPHILS # (AUTO) 0.1 10^3/uL (0.0-0.2); ABSOLUTE LYMPHOCYTES (AUTO) 2.4 10^3/uL (0.5-4.7); ABSOLUTE MONOCYTES (AUTO) 0.4 10^3/uL (0.1-1.4); ABSOLUTE NEUT (AUTO) 1.8 10^3/uL (1.7-8.2); BASOPHILS % (AUTO) 1.2 % (0-2); HEMATOCRIT 39.5 % (36.0-47.0); HEMOGLOBIN 13.1 g/dL (12.0-15.5); LYMPHOCYTES % (AUTO) 50.1 % (13-45); MEAN CORPUSCULAR HEMOGLOBIN 28.8 pg (27.0-33.4); MEAN CORPUSCULAR VOLUME 87 fl (80-97); MONOCYTES % (AUTO) 9.1 % (3-13); PLATELET COUNT 247 10^3/uL (150-450); RED BLOOD COUNT 4.53 10^6/uL (3.72-5.28); RED CELL DISTRIBUTION WIDTH 16.1 % (11.5-14.0); SEGMENTED NEUTROPHILS % (AUTO) 38.6 % (42-78); TOTAL CELLS COUNTED % (AUTO) 100 %; WHITE BLOOD COUNT 4.7 10^3/uL (4.0-10.5)
[2018-11-24 17:25] LABS: ANION GAP 7 (5-19); BLOOD UREA NITROGEN 13 mg/dL (7-20); CALCIUM 9.6 mg/dL (8.4-10.2); CARBON DIOXIDE 26 mmol/L (22-30); CHLORIDE 106 mmol/L (98-107); GLUCOSE 92 mg/dL (75-110); POTASSIUM 4.8 mmol/L (3.6-5.0); SODIUM 139.2 mmol/L (137-145)
--- NOTE | 2018-11-24 17:42 | RADIOLOGY REPORT (SQ) ---
EXAM DESCRIPTION: CT HEAD WITHOUT COMPLETED DATE/TIME: 11/24/2018 5:23 pm REASON FOR STUDY: being treated for mastoiditis, rt side facial n/t COMPARISON: None. TECHNIQUE: Axial images acquired through the brain without intravenous contrast. Images reviewed wi th bone, brain and subdural windows. Images stored on PACS. All CT scanners at this facility use dose modulation, iterative reconstruction, and/or weight based d osing when appropriate to reduce radiation dose to as low as reasonably achievable (ALARA). [facility]: Dose Right [facility]: CareDose [facility]: Dose Right [facility]: Teradose 4D [facility]: Smart [employer] RADIATION DOSE: CT Rad equipment meets quality standard of care and radiation dose reduction techniq ues were employed. CTDIvol: 53.2 mGy. DLP: 1097 mGy-cm. mGy. LIMITATIONS: Scatter artifact. FINDINGS: VENTRICLES: Normal size and contour. CEREBRUM: No masses. No hemorrhage. No midline shift. No evidence for acute infarction. Normal gra y/white matter differentiation. No areas of low density in the white matter. CEREBELLUM: No masses. No hemorrhage. No alteration of density. No evidence for acute infarction. EXTRAAXIAL SPACES: No fluid collections. No masses. ORBITS AND GLOBE: No intra- or extraconal masses. Normal contour of globe without masses. CALVARIUM: No fracture. PARANASAL SINUSES: No fluid or mucosal thickening. SOFT TISSUES: No mass or hematoma. OTHER: No other significant finding. IMPRESSION: No acute intracranial findings. EVIDENCE OF ACUTE STROKE: NO. COMMENT: Quality ID # [id number]: Final reports with documentation of one or more dose reduction techniques (e.g., Automated exposure control, adjustment of the mA and/or kV according to patient size, use of iterative reconstruction technique) TECHNICAL DOCUMENTATION: JOB ID: [id number] [place]-72 2010 [employer]- All Rights Reserved Reading location - IP/workstation name: [email or web address]
--- NOTE | 2018-11-24 18:10 | ER Document Report ---
ED General - General Chief Complaint: Headache Stated Complaint: HEAD PAIN Time Seen by Provider: 11/24/18 16:43 Primary Care Provider: BHARGAV JACOBSON NP [NURSE PRACTITIONER] - Follow up in 3-5 days Mode of Arrival: Ambulatory Notes: Patient presents to the emergency department with complaints of pain behind her right ear, her mouth was twisted, her right eye twitching and headaches on and off for the past week. She reports that she was evaluated at the urgent care Tuesday and treated for possible mastoiditis. Reports they did not do any test but they thought it could be. She has been taking amoxicillin for the past 3 days. She reports she woke up this morning and her eye felt weird was twitching and the right side of her lip was twisted. She also reports she cannot taste that well. denies trauma. Denies fever vomiting diarrhea. Has no history of tick bite. Denies herpes. Patient has in young baby at her bedside. Reports she is not breast-feeding TRAVEL OUTSIDE OF THE [place] IN LAST 30 DAYS: No - HPI Onset: Other Quality of pain: Pressure Severity: Severe Pain Level: 4 Associated symptoms: None Exacerbated by: Denies Relieved by: Denies Similar symptoms previously: Yes Recently seen / treated by doctor: Yes - Related Data Allergies/Adverse Reactions: No Known Allergies Allergy (Verified 04/02/18 20:32) Past Medical History - General Information source: Patient - Social History Smoking Status: Never Smoker Chew tobacco use (# tins/day): No Frequency of alcohol use: Occasional Drug Abuse: None Occupation: [employer] Lives with: Family Family History: Hypertension, Thyroid Disfunction. denies: Arthritis, CAD, COPD, CVA, DM, Hyperlipidemia, Malignancy Patient has suicidal ideation: No Patient has homicidal ideation: No Renal/ Medical History: Reports: Hx Ovarian Cysts - PCOS. Denies: Hx Peritoneal Dialysis Musculoskeletal Medical History: Reports Hx Musculoskeletal Trauma - rt shoulder dislocation Past Surgical History: Reports: Hx Dilation and Curettage - D&C 2 for miscarriages, Hx Gynecologic Surgery - D&Cx3, Hx Orthopedic Surgery - right shoulder - Immunizations Immunizations up to date: Yes Hx Diphtheria, Pertussis, Tetanus Vaccination: Yes Review of Systems - Review of Systems Notes: Review HPI for review of systems., All other systems negative Physical Exam - Vital signs Vitals: Temp Pulse Resp BP Pulse Ox 98.1 F 65 16 116/73 100 11/24/18 16:30 11/24/18 16:30 11/24/18 16:30 11/24/18 16:30 11/24/18 16:30 - General General appearance: Appears well, Alert, Anxious In distress: None - HEENT Head: Normocephalic, Atraumatic Eyes: Normal. No: Pale conjunctiva, Periorbital ecchymosis Conjunctiva: Normal Extraocular movements intact: Yes Eyelashes: Normal Pupils: PERRL Ears: Normal External canal: Normal Tympanic membrane: Normal Nasal: Normal Mouth/Lips: Normal Mucous membranes: Moist Pharynx: Normal Neck: Normal, Supple. No: Lymphadenopathy - Respiratory Respiratory status: No respiratory distress Chest status: Nontender Breath sounds: Normal Chest palpation: Normal - Cardiovascular Rhythm: Regular Heart sounds: Normal auscultation Murmur: No - Abdominal Inspection: Normal Distension: No distension Bowel sounds: Normal Tenderness: Nontender Organomegaly: No organomegaly - Back Back: Normal, Nontender - Extremities General upper extremity: Normal ROM General lower extremity: Normal ROM - Neurological Neuro grossly intact: Yes Cognition: Normal Orientation: AAOx4 Ingrid Coma Scale Eye Opening: Spontaneous Ingrid Coma Scale Verbal: Oriented Ingrid Coma Scale Motor: Obeys Commands Ingrid Coma Scale Total: 15 Speech: Normal Cranial nerves: Other - right eyebrow/eye weaker than left, right side lip slightly droop with smile Motor strength normal: LUE, RUE, LLE, RLE Additional motor exam normals: Equal hide trimmer Sensory: Normal - Psychological Associated symptoms: Normal affect, Normal mood - Skin Skin Temperature: Warm Skin Moisture: Dry Skin Color: Normal Course - Re-evaluation Re-evalutation: 11/24/18 18:[address] was negative for acute stroke. Feel like patient is experiencing Vasquez's palsy due to her earache and lack of taste. Along with the other symptoms. Will treat with steroids taper dose. And also [place] for the headache. Patient was instructed on the importance of follow-up with her provider Dr. Jacobson for recheck. She was also instructed to return to the emergency department for worsening symptoms or concerns. She verbalized understanding. Dictation of this chart was performed using voice recognition software; therefore, there may be some unintended grammatical errors. - Vital Signs Vital signs: Temp Pulse Resp BP Pulse Ox 98.1 F 65 16 116/73 100 11/24/18 16:30 11/24/18 16:30 11/24/18 16:30 11/24/18 16:30 11/24/18 16:30 - Laboratory Result Diagrams: 11/24/18 16:04 11/24/18 16:04 Laboratory results interpreted by me: 11/24/18 16:04 RDW 16.1 H Seg Neutrophils % 38.6 L Lymphocytes % 50.1 H Discharge - Discharge Clinical Impression: Ear pain, right, Vasquez's palsy Condition: Stable Disposition: HOME, SELF-CARE Instructions: Vasquez's Palsy ([facility]), Oral Narcotic Medication ([facility]), Steroid Medication Additional Instructions: *You have been evaluated for ear pain, bells palsy *Take medication as prescribed *Follow up with Dr Aditi Jacobson within 5 days for recheck *Return to ED for worsening condition, changes, needs Prescriptions: Hydrocodone/Acetaminophen [[place] 5-325 mg Tablet] 1 tab PO QID #15 tablet Prednisone [Deltasone 20 mg Tablet] 60 mg PO DAILY #21 tablet Forms: Return to Work Referrals: BHARGAV JACOBSON [employer] [NURSE PRACTITIONER] - Follow up in 3-5 days
[2018-11-24] MEDS ORDERED: HYDROCODONE/ACETAMINOPHEN 5-325 MG TABLET PO ONE (18:25)
[2018-11-24] MEDS ORDERED: PREDNISONE 20 MG TABLET PO ONE (18:46)
[2018-11-24 19:04] VITALS: BP 123/67
== END 2018-11-24 19:09 | disposition home or self-care (01) ==
LOC: ER 16:18
DX: G51.0 Bell's palsy (principal); R51 Headache; R43.9 Unspecified disturbances of smell and taste; H92.01 Otalgia, right ear
CPT/HCPCS: 99284; 36415; 85025; 80048; 70450; J7512

== ENCOUNTER → 2019-03-05 | Outpatient (CLI) | payer OTHER ==
[2019-03-05 13:31] LABS: INTERNATIONAL RATION (INR) 1.13; PROTHROMBIN TIME 14.5 SEC (11.4-15.4)
[2019-03-05 13:32] LABS: PARTIAL THROMBOPLASTIN TIME 28.2 SEC (23.5-35.8)
== END ==
LOC: OD 12:32
PROVIDERS: ATTEND Nurse Practitioner Primary Care
DX: Z01.818 Encounter for other preprocedural examination (principal)
CPT/HCPCS: 36415; 85610; 85730

== ENCOUNTER → 2020-07-07 | Outpatient (CLI) | payer OTHER ==
--- NOTE | 2020-07-07 13:28 | RADIOLOGY REPORT (SQ) ---
EXAM DESCRIPTION: CT BONE LENGTH IMAGES COMPLETED DATE/TIME: 07/07/2020 1:11 pm REASON FOR STUDY: (Q72.819)CONGENITAL SHORTENING OF UNSPECIFIED LOWER LIMB Q72.819 CONGENITAL SHORT ENING OF UNSPECIFIED LOWER LIMB COMPARISON: None. TECHNIQUE: CT scanogram of the bilateral lower extremities is performed including pelvis to ankles. Measurements of femur, tibia, and entire lower extremities performed by the radiologist and saved to PACS. All CT scanners at this facility use dose modulation, iterative reconstruction, and/or weight based d osing when appropriate to reduce radiation dose to as low as reasonably achievable (ALARA). [facility]: Dose Right [facility]: CareDose [facility]: Dose Right [facility]: Teradose 4D [facility]: [employer] RADIATION DOSE: mGy. LIMITATIONS: None. FINDINGS: RIGHT: FEMUR: 42.5 cm. TIBIA: 35.4 cm. TOTAL RIGHT LOWER EXTREMITY LENGTH (INCLUDES THE KNEE JOINT SPACE): 77.3 cm. LEFT: FEMUR: 42.6 cm. TIBIA: 35.3 cm. TOTAL LEFT LOWER EXTREMITY LENGTH (INCLUDES THE KNEE JOINT SPACE): 77.5 cm. IMPRESSION: LEG LENGTH MEASUREMENTS DETAILED ABOVE. TECHNICAL DOCUMENTATION: JOB ID: [id number] Quality ID # [id number]: Final reports with documentation of one or more dose reduction techniques (e.g., Au tomated exposure control, adjustment of the mA and/or kV according to patient size, use of iterative reconstruction technique) 2010 [employer]- All Rights Reserved Reading location - IP/workstation name: [email or web address]
== END ==
LOC: RAD 12:46
PROVIDERS: ATTEND Podiatrist Foot & Ankle Surgery
DX: Q72.811 Congenital shortening of right lower limb (principal)
CPT/HCPCS: 77073